=== PATIENT | male | born 1985 | race Caucasian/White ===

== ENCOUNTER 2020-04-28 14:05 | Emergency (ER) | payer SELFPAY ==
--- NOTE | 2020-04-28 14:11 | PDOC ---
Rapid Medical Evaluation Chief Complaint: Laceration Time Seen by Provider: 04/28/20 14:09 Medical Evaluation: 04/28/20 14:09 I have performed a brief in-person evaluation of this patient. The patient presents with a chief complaint of:laceration to right eyebrow s/p fall in bathroom yesterday while drunk. pt does not recall last tetanus vaccine Pertinent physical exam findings: 1.5 horizontal linear superficial lac to right eyebrow. no bleeding. I have ordered the following: boostrix The patient will proceed to the ED for further evaluation. Discharge Disposition - Diagnosis Laceration of right eyebrow without complication Qualifiers: Encounter type: initial encounter Qualified Code(s): S01.111A - Laceration without foreign body of right eyelid and periocular area, initial encounter - Discharge Dispostion Condition at time of disposition: Stable - Referrals - Patient Instructions - Post Discharge Activity
[2020-04-28 14:12] VITALS: BP 125/73; PULSE 82; TEMP 99; BMI 39.3
[2020-04-28] MEDS ORDERED: DIPHTH,PERTUSS(ACELL),TET 0.5 ML DISP.SYRIN IM ONE (14:12)
--- NOTE | 2020-04-28 15:17 | PDOC ---
History of Present Illness - General Chief Complaint: Laceration Stated Complaint: EYE PROBLEM Time Seen by Provider: 04/28/20 14:09 History Source: Patient Exam Limitations: No Limitations - History of Present Illness Initial Comments: 04/28/20 14:54 HISTORY OF PRESENT ILLNESS: 34-year-old male denies medical history presents emergency department for evaluation of right eyebrow laceration which was sustained at approximately 1 AM. Patient reports he was drinking alcohol yesterday to celebrate 27 April and when he went to the bathroom to take a shower he slipped and struck his face on the toilet. He denies any loss of consciousness at that time continue to take his breath and when he woke up today came to the emergency department for evaluation. Patient reports his last tetanus shot was in 2005. Presently patient denies all complaints but was concerned that the wound is open. No recent travel or sick contacts. PAST MEDICAL HISTORY: Denies past medical history SURGICAL HISTORY: Denies ALLERGIES: No known drug allergies REVIEW OF SYSTEMS General/Constitutional: Denies fever or chills. Denies weakness, weight change. HEENT: Denies change in vision. Denies ear pain or discharge. Denies sore throat. Cardiovascular: Denies chest pain or shortness of breath. Respiratory: Denies cough, wheezing, or hemoptysis. Gastrointestinal: Denies nausea, vomiting, diarrhea or constipation. Denies rectal bleeding. Genitourinary: Denies dysuria, frequency, or change in urination. Musculoskeletal: Denies joint or muscle swelling or pain. Denies neck or back pain. Skin and breasts: See HPI Neurologic: Denies headache, vertigo, loss of consciousness, or loss of sensation. Psychiatric: Denies depression or anxiety. Endocrine: Denies increased thirst. Denies abnormal weight change. Hematologic/Lymphatic: Denies anemia, easy bleeding, or history of blood clots. Allergic/Immunologic: Denies hives or skin allergy. Denies latex allergy. PHYSICAL EXAM General Appearance: Well-appearing, appropriately dressed. No apparent distress, no intoxication. HEENT: EOMI, PERRLA, normal ENT inspection, normal voice, TMs normal, pharynx normal. No conjunctival pallor. No photophobia, scleral icterus. No hemotympanum present. No evidence of septal hematoma noted. No periorbital tenderness noted. Laceration present to the medial aspect of the right eyebrow approximately 1.5 cm in length. Laceration is linear and into the muscle layer. Neck: Supple. Trachea midline. No tenderness, rigidity, carotid bruit, stridor, lymphadenopathy, or thyromegaly. Respiratory/Chest: Lungs CTAB. No shortness of breath, chest tenderness, respiratory distress, accessory muscle use. No crackles, rales, rhonchi, stridor, wheezing, dullness Cardiovascular: RRR. S1, S2. No JVD, murmur, bradycardia, tachycardia. Vascular Pulses: Dorsalis-Pedis (R): 2+, Dorsalis-Pedis (L): 2+ Gastrointestinal/Abdominal: Normal bowel sounds. Abdomen soft, non-distended. No tenderness or rebound tenderness. No organomegaly, pulsatile mass, guarding, hernia, hepatomegaly, splenomegaly. Lymphatic: No adenopathy, tenderness. Musculoskeletal/Extremities: Normal inspection. FROM of all extremities, normal capillary refill. Pelvis Stable. No CVA tenderness. No tenderness to extremities, pedal edema, swelling, erythema or deformity. Integumentary: Laceration present to the medial aspect of the right eyebrow approximately 1.5 cm in length. Laceration is linear and into the muscle layer. 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 Fully oriented, alert. Appropriate mood/affect. Motor strength 5/5. No appreciable EOM palsy, facial droop or sensory deficit. Past History - Medical History Allergies/Adverse Reactions: Allergies Allergy/AdvReac Type Severity Reaction Status Date / Time No Known Allergies Allergy Verified 04/28/20 14:11 COPD: No - Immunization History Immunization Up to Date: No - Psycho-Social/Smoking History Smoking History: Never smoked - Substance Abuse Hx (Audit-C & DAST Scrn) How often the patient has a drink containing alcohol: Monthly or less Score: In Men: 4 or > Positive; In Women: 3 or > Positive: 1 Screen Result (Pos requires Nsg. Audit-10AR): Negative *Physical Exam - Vital Signs Last Vital Signs Temp Pulse Resp BP Pulse Ox 99 F 82 18 125/73 99 04/28/20 14:07 04/28/20 14:07 04/28/20 14:07 04/28/20 14:07 04/28/20 14:07 Procedures - Consent Consent obtained: Verbal, From Patient - Laceration/Wound Repair Right Anterior Face Wound Length: to 2.5 cm Wound Explored: clean Wound's Depth, Shape: into muscle Irrigated w/ Saline: Yes Betadine Prep: Yes Anesthesia: 2% Lidocaine Amount of Anesthetic (ccs): 4 Wound Debrided: minimal Wound Repaired With: Sutures Suture Size/Type: 5:0, proline Number of Sutures: 5 Layer Closure: Yes Deep Layer Suture Size/Type: 4:0, vycril Number of Deep Layer Sutures: 1 Sterile Dressing Applied: Yes Splint Applied: Yes Sling Applied: No Progress: 04/28/20 15:18 Patient tolerated well Medical Decision Making - Medical Decision Making 04/28/20 14:57 A/P: 34-year-old male with right eyebrow laceration sustained approximately 13 hours prior to arrival Approximate 1.5 cm linear deep laceration present to the medial aspect of the right eyebrow. No periorbital tenderness, swelling or ecchymosis is present. No hemotympanum is noted No evidence of septal hematomas present. Neurologic exam is unremarkable Laceration repair-see procedure note for details Boostrix IM Discharge home 04/28/20 15:17 Patient rechecked his patient portal and noted that his last tetanus shot came in 2012 when he broke a mirror. Discharge - Discharge Information Problems reviewed: Yes Clinical Impression/Diagnosis: Laceration of right eyebrow without complication Qualifiers: Encounter type: initial encounter Qualified Code(s): S01.111A - Laceration without foreign body of right eyelid and periocular area, initial encounter Condition: Fair Disposition: HOME - Admission No - Follow up/Referral - Patient Discharge Instructions Patient Printed Discharge Instructions: DI for Closed Head Injury Additional Instructions: Keep wound clean and dry Avoid strenuous activity/exercise to create a hot or sweaty environment until sutures are removed Reapply bacitracin ointment 2 times a day until sutures are removed Return to emergency Department or private physician in 5-7 days for suture removal May use Tylenol or Motrin for pain relief Return immediately to emergency department for redness, swelling, pain, or signs of infection - Post Discharge Activity
== END 2020-04-28 15:20 | disposition home or self-care (01) ==
LOC: JERFT 14:05
PROC: 0JQ10ZZ Repair Face Subcutaneous Tissue and Fascia, Open Approach (ICD-10-PCS; principal; 2020-04-28)
PROC: 3E0234Z Introduction of Serum, Toxoid and Vaccine into Muscle, Percutaneous Approach (ICD-10-PCS; 2020-04-28)
DX: S01.111A Laceration without foreign body of right eyelid and periocular area, initial encounter (principal)
CPT/HCPCS: 12011-25; 90471; 99284-25

== ENCOUNTER 2021-01-22 09:46 | Emergency (ER) | payer OTHER | END 2021-01-22 10:33 | disposition home or self-care (01) | LOC: JVIRT 09:46 | DX: U07.1 COVID-19 (principal) | CPT/HCPCS: C9803; G2251-GT; U0003 ==

== ENCOUNTER 2021-02-06 14:40 | Emergency (ER) | payer OTHER ==
[2021-02-07 11:08] LABS: SARS-CoV-2 NAA Detected (Not Detected)
== END 2021-02-06 15:20 | disposition home or self-care (01) ==
LOC: JVIRT 14:40
DX: U07.1 COVID-19 (principal)
CPT/HCPCS: C9803; G2251-GT; Q3014-GT; U0003; U0005